=== PATIENT | female | born 1955 | race Caucasian/White ===

== ENCOUNTER 2016-05-27 17:55 | Emergency (ER) | payer OTHER ==
--- NOTE | 2016-05-27 18:23 | UCPHY ---
H & P Time Seen by Provider: 05/27/16 17:59 Patient Type: New HPI/ROS: This patient presents with a chief complaint of right ankle injury which occurred yesterday while she was playing tennis. She describes an inversion injury and localizes her pain to the lateral aspect of the joint and denies any pain immediately. Walking is quite painful. She denies any motor or sensory Dysfunction. She denies other injury. He Smoking Status: Never smoked Physical Exam: This patient is alert, lucid and in mild discomfort. Ankle: The ankle shows is swollen moderately on the lateral side of mildly on the medial side. There is tenderness of the 3 lateral ligaments but only mild tenderness of the deltoid. Skin i is intact but there is some discoloration inferior to the fibula. CMS is normal. Foot: There is no tenderness or swelling of the midfoot or forefoot and toes are normal. Constitutional: Initial Vital Signs Temperature (C) 36.6 C 05/27/16 18:15 Heart Rate 77 05/27/16 18:15 Respiratory Rate 16 05/27/16 18:15 Blood Pressure 130/74 H 05/27/16 18:15 O2 Sat (%) 100 05/27/16 18:15 O2 Delivery Mode Room Air Allergies/Adverse Reactions: sulfamethoxazole [From Bactrim] Allergy (Verified 05/27/16 18:14) trimethoprim [From Bactrim] Allergy (Verified 05/27/16 18:14) Home Medications: Medication Instructions Recorded Zolpidem Tartrate [Ambien 5MG (*)] 5 mg PO HS PRN #12 tab 05/27/16 Medical Decision Making - Diagnostics Imaging: X-rays of the ankle show a nondisplaced fracture of the distal fibula. ED Course/Re-evaluation: A Garcias boot was applied. Departure - Departure Disposition: Home, Routine, Self-Care Clinical Impression: Fracture of distal fibula Qualifiers: Encounter type: initial encounter Fracture type: closed Laterality: right Condition: Good Instructions: Ankle Fracture (ED) Additional Instructions: You should have this fracture re-evaluated in 7-10 days. The name of an orthopedist has been provided to you for follow-up. Wear the boot continuously except for showering and to apply ice. Apply ice to the area of injury for 20 minutes every 2 hours for 3 days following your injury. After 3 days (72 hours) it is safe to apply heat frequently throughout the day and I would recommend you're doing so. However if ice feels better it is okay to do this. Elevate the area of the injury as much as possible for the next 2 or 3 days or longer if you have a serious injury. If you have been told that it is safe to use the injured extremity do so in a limited fashion for the first 2-3 days. Afterwards left pain be your guide. Adult Pain & Fever Control: We recommend Acetaminophen (Tylenol) and Ibuprofen (Motrin, Advil) for pain and fever control. When fever is high or pain severe, both drugs can be used at the same time, but at different intervals. Please note the time differences. Your dose is: Acetaminophen [650]mg every 4 to 6 hours ibuprofen [600]mg every [6] hours with food OR naproxen Sodium (Aleve) [440]mg every 12 hours. Note: do not take Acetaminophen with Hydrocodone (Vicodin, Lortab) or Oxycodone (Percocet). These medications also contain Acetaminophen. No more than 3000 mg of Acetaminophen should be taken in 24 hours (for an adult) . The maximal dose of ibuprofen that it is safe in a 24-hour period is 2400 mg. You may take 400 mg every 4 hours, 600 mg every 6 hours or 800 mg every 8 hours safely. Referrals: Yinka Mccullough MD [Medical Doctor] - As per Instructions Prescriptions: Zolpidem Tartrate [Ambien 5MG (*)] 5 mg PO HS PRN #12 tab PRN Reason: Sleep - PQRS PQRS Measurement: Not applicable
[2016-05-27 18:58] VITALS: BP 130/74; PULSE 77; RESP 16; TEMP 97.9; O2SAT 100
--- NOTE | 2016-05-27 18:59 | DX ---
Right ankle series 3 views 1822 hours. History: Right ankle pain and swelling. Inversion injury yesterday. Findings: There is nondisplaced transverse fracture distal shaft of the fibula just below the level o f the ankle mortise with moderate to large amount of adjacent soft tissue swelling. No additional fra ctures are seen about the ankle. The ankle mortise has a normal contour. There is a moderate plantar calcaneal spur. Impression: 1. Nondisplaced transverse fracture distal fibula.
== END 2016-05-27 18:59 | disposition home or self-care (01) ==
LOC: CED 17:55
DX: S82.424A Nondisplaced transverse fracture of shaft of right fibula, initial encounter for closed fracture (principal); Y93.73 Activity, racquet and hand sports
CPT/HCPCS: 73610-PO; 99203-PO; G0463-PO; L4386

== ENCOUNTER → 2016-06-02 | Outpatient (CLI) | payer OTHER ==
--- NOTE | 2016-06-02 12:51 | DX ---
Right Ankle, Three Views Indication: Follow up distal fibular fracture. Technique: AP, mortise, and lateral views. Comparison: Right ankle series, May 27, 2016. Findings: The ankle mortise is preserved. The nondisplaced distal fibular fracture is unchanged in go od alignment. No significant callus formation has developed. Lateral soft tissue swelling has improve d. Plantar spur is unchanged. Impression: Nondisplaced distal fibular fracture remains anatomically aligned.
== END ==
LOC: BMCIMAGING 12:00
PROVIDERS: ATTEND Podiatrist Foot & Ankle Surgery
DX: S82.831D Other fracture of upper and lower end of right fibula, subsequent encounter for closed fracture with routine healing (principal)

== ENCOUNTER → 2016-06-30 | Outpatient (CLI) | payer OTHER ==
--- NOTE | 2016-06-30 12:11 | DX ---
Right Ankle - 3 Views Indication: Follow up healing fracture. Technique: AP, mortise, and lateral views. Comparison: Right ankle radiograph dated 06/02/2016 and 05/27/2016. Findings: The transverse distal radius fracture, 1 cm inferior to the plafond, is healing in anatomic alignment with gradual deposition of healing callus and resorption of the bone along the fracture pl ane. The ankle mortise is well preserved. Lateral soft tissue swelling has nearly completely resolved . Plantar spur is unchanged. Impression: Good healing of nondisplaced distal fibular fracture in anatomic alignment. Mortise is we ll preserved.
== END ==
LOC: BMCIMAGING 11:09
PROVIDERS: ATTEND Podiatrist Foot & Ankle Surgery
DX: S82.831D Other fracture of upper and lower end of right fibula, subsequent encounter for closed fracture with routine healing (principal)

== ENCOUNTER → 2016-07-21 | Outpatient (CLI) | payer OTHER | LOC: BMCIMAGING 10:49 | PROVIDERS: ATTEND Podiatrist Foot & Ankle Surgery | DX: S82.831D Other fracture of upper and lower end of right fibula, subsequent encounter for closed fracture with routine healing (principal) ==

== ENCOUNTER → 2016-08-30 | Outpatient (CLI) | payer OTHER | LOC: BMCIMAGING 08:44 | PROVIDERS: ATTEND Podiatrist Foot & Ankle Surgery | DX: S82.42 Transverse fracture of shaft of fibula (principal) ==

== ENCOUNTER → 2017-01-11 | Outpatient (CLI) | payer OTHER | LOC: FIMAGING 09:18 | PROVIDERS: ATTEND Internal Medicine | DX: Z12.31 Encounter for screening mammogram for malignant neoplasm of breast (principal) | CPT/HCPCS: G0202 ==

== ENCOUNTER → 2017-03-20 | Outpatient (CLI) | payer OTHER | LOC: BMCIMAGING 15:45 | PROVIDERS: ATTEND Physician Assistant | DX: M25.861 Other specified joint disorders, right knee (principal); M25.862 Other specified joint disorders, left knee; M25.461 Effusion, right knee; M25.462 Effusion, left knee ==

== ENCOUNTER → 2017-10-26 | Outpatient (CLI) | payer OTHER | LOC: BMCIMAGING 10:50 | PROVIDERS: ATTEND Internal Medicine | DX: Z13.820 Encounter for screening for osteoporosis (principal); M85.89 Other specified disorders of bone density and structure, multiple sites; Z78.0 Asymptomatic menopausal state ==

== ENCOUNTER → 2018-09-19 | Outpatient (CLI) | payer OTHER | LOC: FIMAGING 09:06 | PROVIDERS: ATTEND Family Medicine | DX: Z12.31 Encounter for screening mammogram for malignant neoplasm of breast (principal) ==